=== PATIENT | male | born 1955 | race Caucasian/White ===

== ENCOUNTER 2018-09-26 04:18 | Emergency (ER) | payer OTHER ==
[2018-09-26 04:40] VITALS: BP 120/75; PULSE 59; TEMP 97.7; BMI 28.7
--- NOTE | 2018-09-26 04:43 | PDOC ---
Attending Attestation - Resident Resident Name: Giovanni Young - ED Attending Attestation I have performed the following: I have examined & evaluated the patient, The case was reviewed & discussed with the resident, I agree w/resident's findings & plan - HPI HPI: 09/26/18 04:55 Pt comes with chest pain that is pinching atypical - Physicial Exam PE: 09/26/18 07:01 Normal neuro exam. 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 Afebrile. - Medical Decision Making 09/26/18 07:02 Pt referred back to PMD to check his Thyroid panel; referred to neurologist; we discussed the fact that this is liekly stress related.
--- NOTE | 2018-09-26 05:13 | PDOC ---
History of Present Illness - General Chief Complaint: Shortness of Breath Stated Complaint: DIFFICULTY BREATHING Time Seen by Provider: 09/26/18 04:40 History Source: Patient Exam Limitations: No Limitations - History of Present Illness Initial Comments: 09/26/18 05:05 63 yo male pmh of GERD presents to the ED for inability to open his eyes after suddenly waking up around 1 am this morning along with difficulty taking deep breaths for 1 hour. Pt states a similar episode 6 months ago and did not follow up with his PCP. Pt states the episode lasted for 1 hour and completely resolved without deficits. Pt describes the epside as an inability to open his eyes even though he is awake and able to move the rest of his body which lasts for about 1 min and was followed but difficulty breathing for 1 hour. Denies RUSHING , changes in speech or vision, N/V/F/C, weakness on one side of his body. Past History - Past Medical History Allergies/Adverse Reactions: Allergies Allergy/AdvReac Type Severity Reaction Status Date / Time No Known Allergies Allergy Verified 09/26/18 04:40 - Suicide/Smoking/Psychosocial Hx Smoking History: Never smoked Have you smoked in the past 12 months: No Information on smoking cessation initiated: No Hx Alcohol Use: No Drug/Substance Use Hx: No Review of Systems - Review of Systems Constitutional: No: Chills, Fever HEENTM: No: Blurred Vision, Double Vision Respiratory: No: Cough, Shortness of Breath (resolved) Cardiac (ROS): No: Chest Pain, Edema ABD/GI: No: Constipated, Diarrhea, Nausea, Vomiting : No: Burning, Dysuria Musculoskeletal: No: Back Pain Neurological: No: Headache, Numbness, Paresthesia, Weakness, Unsteady Gait, Ataxia *Physical Exam - Vital Signs Last Vital Signs Temp Pulse Resp BP Pulse Ox 97.7 F 59 L 19 120/75 96 09/26/18 04:18 09/26/18 04:18 09/26/18 04:18 09/26/18 04:18 09/26/18 04:18 - Physical Exam General Appearance: Yes: Nourished, Appropriately Dressed. No: Apparent Distress HEENT: positive: EOMI, NEGRA, Normal ENT Inspection, Normal Voice. negative: Pale Conjunctivae, Photophobia Respiratory/Chest: positive: Lungs Clear, Normal Breath Sounds. negative: Rhonchi, Wheezing Cardiovascular: positive: Regular Rhythm, Regular Rate, S1, S2. negative: Edema , JVD, Murmur Gastrointestinal/Abdominal: positive: Flat, Soft. 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 negative: Facial Droop, Numbness, Sensory Deficit, Confused, Disoriented Moderate Sedation - Procedure Monitoring Vital Signs: Procedure Monitoring Vital Signs Temperature 97.7 F 09/26/18 04:18 Pulse Rate 59 L 09/26/18 04:18 Respiratory Rate 09/26/18 04:18 Blood Pressure 120/75 09/26/18 04:18 O2 Sat by Pulse Oximetry (%) 96 09/26/18 04:18 Medical Decision Making - Medical Decision Making 09/26/18 06:21 63 yo male no significant pmh presents to the ED for difficulty opening his eyes and taking deep breaths after suddenly waking up tonight. Pt had 1 similar episode 6 months ago. Denies any concerning neurological findings and s/s have completely resolved Vitals WNL DDX includes but not limited to: sleep paralysis, TIA, psych disorder, anxiety Pt well appearing, NAD, AOX3 All symptoms resolved and pt denies any current complaints Neuro exam grossly normal EKG shows slight prologation in the NV 210 ms but otherwise normal sinus without ST changes Chest X ray no acute path Will DC home with PCP and Neuro follow up Pt understands plan and is agreeable *DC/Admit/Observation/Transfer Diagnosis at time of Disposition: Difficulty breathing - Discharge Dispostion Disposition: HOME Condition at time of disposition: Fair Decision to Admit order: No - Referrals Referrals: Shivam Diallo MD [Primary Care Provider] - Tigre Light MD [Staff Physician] - - Patient Instructions Additional Instructions: Please make appointment and follow up with your Primary Care Doctor within the next 24-48 hours. You may contact the Neurologist referred to you if concerns persist. Return to the Emergency Room for new or concerning symptoms including but not limited to: difficulty breathing, fevers, headaches, changes in speech or vision or weakness on one side of your body. Thank you - Post Discharge Activity
--- NOTE | 2018-09-26 16:37 | EKG ---
Test Reason : Blood Pressure : / mmHG Vent. Rate : 056 BPM Atrial Rate : 056 BPM P-R Int : 210 ms QRS Dur : 082 ms QT Int : 454 ms P-R-T Axes : 051 067 055 degrees QTc Int : 438 ms SINUS BRADYCARDIA WITH 1ST DEGREE A-V BLOCK OTHERWISE NORMAL ECG NO PREVIOUS ECGS AVAILABLE Confirmed by MD TRICIA, LEELA ([id number]) on 09/26/2018 4:36:58 PM Referred By: Confirmed By:LEELA CLARKE MD
== END 2018-09-26 07:16 | disposition home or self-care (01) ==
LOC: JER 04:18
DX: R06.89 Other abnormalities of breathing (principal)
CPT/HCPCS: 71046-TC-FY; 93005; 93010; 99281-25

== ENCOUNTER 2020-06-28 10:22 | Observation (INO) | payer BC, OTHER ==
--- OUTSIDE RECORDS SUMMARY | 2020-06-28 11:25 | XMS ---
:1955 Author Organization [facility] Support Name Relationship Address Phone SE Unavailable Unavailable Unavailable DEANNA DAUGHTER [address] [place] [address] GUY Unavailable [address] [place] [address] Re-disclosure Warning The records that you are about to access may contain information from federally- assisted alcohol or drug abuse programs. If such information is present, then the following federally mandated warning applies: This information has been disclosed to you from records protected by federal confidentiality rules (42 CFR part 2). The federal rules prohibit you from making any further disclosure of this information unless further disclosure is expressly permitted by the written consent of the person to whom it pertains or as otherwise permitted by 42 CFR part 2. A general authorization for the release of medical or other information is NOT sufficient for this purpose. The Federal rules restrict any use of the information to criminally investigate or prosecute any alcohol or drug abuse patient.The records that you are about to access may contain highly sensitive health information, the redisclosure of which is protected by Article 27-F of the [facility] Public Health law. If you continue you may haveaccess to information: Regarding HIV / AIDS; Provided by facilities licensed or operated by the [facility] Office of Mental Health; or Provided by the [facility] Office for People With Developmental Disabilities. If such information is present, then the following [facility] mandated warning applies: This information has been disclosed to you from confidential records which are protected by state law. State law prohibits you from making any further disclosure of this information without the specific written consent of the person to whom it pertains, or as otherwise permitted by law. Any unauthorized further disclosure in violation of state law may result in a fine or skilled nursing sentence or both. A general authorization for the release of medical or other information is NOT sufficient authorization for further disclosure. Encounters Encounter Providers Location Date Indications Data Source(s ) (CPE) Annual/CPE [facility] 07/22/2019 eCW3 ([facility] A28 12:00:00 AM [facility] ED - Care) 07/22/2019 12:00:00 AM EDT Immunizations Vaccine Date Status Description Data Source(s) pneumococcal 05/14/2020 completed eCW3 ([facility] diana polysaccharide PPV23 12:02:00 PM EDT [facility]) New in 2011. IIV4 07/22/2019 completed eCW3 ([facility] 10:36:00 AM [facility]) Insurance Providers Payer name Policy type Policy ID Covered Covered constitution party's Policy P gely / Coverage constitution party ID relationship to White Inf ormation type white BLUE CROSS [id number] SP [id number] SENIOR PLAN [place] [id number] SP [id number] 200 HEALTH NON CAP UN [id number] SP [id number] MEDICAID COMM PLAN Problems, Conditions, and Diagnoses Code Display Name Description Problem Type Effective Dates Data Source(s) M54.41 Acute Acute left-sided Problem 07/22/2019 eCW3 ([facility] left-sided low low back pain with 12:00:00 AM E [facility] back pain with right-sided Care) right-sided sciatica sciatica Social History Code Duration Value Status Description Data Source(s ) Smoking 05/14/2020 12:00:00 Never Smoker completed Never Smoker e CW3 ([facility]) Smoking 09/12/2019 12:00:00 Never Smoker completed Never Smoker e CW3 ([facility]) Vital Signs ID Date Data Source UNK Name Value Range Interpretation Code Description Data Source(s) Diastolic blood 74 mm[Hg] 74 mm[Hg] eCW3 ([facility]) Systolic blood 119 mm[Hg] 119 mm[Hg] eCW3 ([facility]) Body temperature 97.3 [degF] 97.3 [degF] eCW3 ( [facility]) Body mass index 31.24 kg/m2 31.24 kg/m2 eCW3 ([facility] (BMI) [Ratio] [facility]) Body weight 182 [lb_av] 182 [lb_av] eCW3 ([facility]) Body height 64 [in_i] 64 [in_i] eCW3 ([facility])
--- NOTE | 2020-06-28 11:26 | PDOC ---
History of Present Illness - General Chief Complaint: Chest Pain Stated Complaint: CHEST DISCOMFORT Time Seen by Provider: 06/28/20 11:21 History Source: Patient Exam Limitations: No Limitations - History of Present Illness Initial Comments: 06/28/20 11:34 65YOM with h/o HLD (untreated currently), coronary cath 10 years ago in [place] (states vessels were clean), and brother+mother with h/o CAD, who p/w pinching episodes of nonradiating substernal chest pain x 1-2 weeks, now worse and fluctuating throughout the day, occurring at random times during both rest and exercise. No associated back pain, SOB, RUSHING, neck pain, abdominal pain, f/c/n/v/d/c, or other symptoms. Did not take any ASA or other meds for this pain. 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 States he just switched PCPs at [facility] on [address] in [place], but cannot remember the name of the new PCP. Past History - Medical History Allergies/Adverse Reactions: Allergies Allergy/AdvReac Type Severity Reaction Status Date / Time No Known Allergies Allergy Verified 06/28/20 10:27 Home Medications: Ambulatory Orders NK [No Known Home Medication] 06/28/20 COPD: No - Psycho-Social/Smoking History Smoking History: Never smoked Have you smoked in the past 12 months: No - Substance Abuse Hx (Audit-C & DAST Scrn) How often the patient has a drink containing alcohol: Never Score: In Men: 4 or > Positive; In Women: 3 or > Positive: 0 Screen Result (Pos requires Nsg. Audit-10AR): Negative In the last yr the pt used illegal drug/Rx for NonMed reason: No Score: Yes response is considered Positive: 0 Screen Result (Positive result requires Nsg. DAST-10): Negative Review of Systems - Review of Systems Able to Perform ROS?: Yes Comments:: 06/28/20 11:38 GEN: no fever, chills, malaise, or generalized weakness HEENT: no ear pain, congestion, sore throat, vision change, or eye pain CV: +chest pain, no palpitations, lightheadedness, syncope, or edema RESP: no SOB, wheezing, or cough GI: no abdominal pain, nausea, vomiting, diarrhea, constipation, or rectal bleed : no dysuria, hematuria, or discharge MSK: no muscle weakness or pain, no joint swelling or pain NEURO: no headache, vertigo, numbness, tingling, or focal weakness PSYCH: no SI, HI, or behavior change SKIN: no jaundice, rash, lesions, or unexplained bruises ROS otherwise negative except as noted in HPI *Physical Exam - Vital Signs Last Vital Signs Temp Pulse Resp BP Pulse Ox 97.7 F 54 L 16 135/84 97 06/28/20 10:27 06/28/20 10:27 06/28/20 10:27 06/28/20 10:27 06/28/20 10:27 - Physical Exam 06/28/20 11:38 GENERAL: very pleasant and well-appearing, A/Ox4, no distress, answers questions appropriately, Citizen Of [place]-speaking only, daughter at bedside HEENT: PERRLA, EOMI, moist mucous membranes NECK/BACK: no midline ttp, no spinal step-off or deformity, no hematoma, full ROM, neck supple CARDIOVASCULAR: regular rate/rhythm, no MGR, strong peripheral pulses, capillary refill <2 seconds, extremities wwp, no edema, radial pulses are equal LUNGS/RESPIRATORY: no respiratory distress, CTAB GI/ABDOMEN: symmetric [id number], normoactive BS, soft, no ttp, no midline pulsatile masses : no CVA tenderness MSK/EXTREMITIES: no muscle atrophy, no acute deformity SKIN: warm and dry, no pallor, no jaundice, no rash, no pathologic-appearing bruising, no skin breakdown, no cuts, no lesions NEUROLOGICAL: GCS 15, CN II-XII grossly intact, 5/5 strength proximally and distally, no facial droop Heart Score/ECG Review - History History: Moderately suspicious - Electrocardiogram EKG: Non specific repolarization disturbance - Age Age: 45-65 - Risk Factors Risk Factors Heart Score: Yes Hx Hypercholesterolemia, Yes Positive family hx of cardiac disease Based on the list above the patient has:: 1-2 risk factors - Troponin Troponin: </= normal limit - Score Heart Score - Total: 4 #1 06/28/20 11:24 Sinus bradycardia, rate 55, normal axis and intervals, anteroseptal TWI which are new compared with 2019, no ST elevations. ED Treatment Course - LABORATORY CBC & Chemistry Diagram: 06/28/20 11:10 06/28/20 11:10 - ADDITIONAL ORDERS Additional order review: Laboratory Results 06/28/20 06/28/20 11:10 11:10 PT with INR 12.20 INR 1.03 Sodium 141 Potassium 4.2 Chloride 107 Carbon Dioxide 29 Anion Gap 5 L BUN 14.8 Creatinine 0.9 Est GFR (CKD-EPI)AfAm 103.51 Est GFR (CKD-EPI)NonAf 89.31 Random Glucose 88 Calcium 8.4 L Magnesium 2.4 Total Bilirubin 0.7 AST 23 ALT 40 Alkaline Phosphatase 59 Creatine Kinase 146 Troponin I < 0.02 Total Protein 7.0 Albumin 3.4 Lipase 83 06/28/20 11:10 RBC 4.87 MCV 85.0 MCHC 33.5 RDW 13.7 MPV 9.0 Neutrophils % 70.9 Lymphocytes % 18.9 Monocytes % 7.5 Eosinophils % 1.4 Basophils % 1.3 - RADIOLOGY Radiology Studies Ordered: Category Date Time Status CHEST X-RAY PORTABLE* [RAD] Stat Radiology 06/28/20 11:22 Completed - Medications Given in the ED: ED Medications Discontinued Medications Generic Name Dose Route Start Last Admin Trade Name Freq PRN Reason Stop Dose Admin Aspirin 324 mg 06/28/20 11:33 06/28/20 11:47 Asa - PO 06/28/20 11:34 324 mg ONCE ONE Administration Medical Decision Making - Medical Decision Making 06/28/20 11:34 65YOM with FHX, also with personal h/o HLD (currently untreated), and prior coronary cath 10 years ago, states was clean, p/w chest pain. Initial Vital Signs Temp Pulse Resp BP Pulse Ox 97.7 F 54 L 16 135/84 97 06/28/20 10:27 06/28/20 10:27 06/28/20 10:27 06/28/20 10:27 06/28/20 10:27 There is concern for ACS in this patient including angina or recent NC. Other possibilities less likely including GERD/PUD, ericarditis, tamponade, aortic dissection, AAA, PTX, PE, esophageal tear, esophagitis (e.g. pill, infectious), esophageal stricture, esophageal FB, gastritis, PUD, pancreatitis, cholecystitis, cholangitis, colitis, bowel perforation, PNA/bronchitis, pleurisy, pleuritis, MVP, pulmonary HTN, musculoskeletal, panic/anxiety, etc. Patient has new EKG changes and HEART score 4. To be admitted for further observation, workup, echo, cardiology consult, etc. 06/28/20 12:22 Provider Orders Category Date Time Status Decision to Admit to Hospital Routine Admission 06/28/20 11:43 Active ELECTROCARDIOGRAM [CARD] Stat Cardiology 06/28/20 10:54 Ordered EKG needed NOW Care 06/28/20 10:54 Completed CARDIAC PROFILE ([facility]) Stat Lab 06/28/20 11:10 Completed CBC WITH DIFFERENTIAL Stat Lab 06/28/20 11:10 Completed COMP METABOLIC PANEL Stat Lab 06/28/20 11:10 Completed LIPASE Stat Lab 06/28/20 11:10 Completed MAGNESIUM Stat Lab 06/28/20 11:10 Completed PT/INR (PROTHROMBIN TIME) Stat Lab 06/28/20 11:10 Completed Aspirin [ASA -] Medication 06/28/20 11:42 Discontinued 324 mg .ROUTE .STK-MED ONE Aspirin [ASA -] Medication 06/28/20 11:33 Discontinued 324 mg PO ONCE ONE IV Insert NOW Phy Order 06/28/20 11:22 Active Saline Lock, Insert ONCE Phy Order 06/28/20 11:30 Ordered CHEST X-RAY PORTABLE* [RAD] Stat Radiology 06/28/20 11:22 Completed Medications Discontinued Medications Generic Name Dose Route Start Last Admin Trade Name Rejiq PRN Reason Stop Dose Admin Aspirin 324 mg 06/28/20 11:33 06/28/20 11:47 Asa - PO 06/28/20 11:34 324 mg ONCE ONE Administration Aspirin Confirm 06/28/20 11:42 Asa - Administered 06/28/20 11:43 Dose 324 mg .ROUTE .STK-MED ONE Lab Results WBC 5.2 K/mm3 (4.0-10.0) 06/28/20 11:10 RBC 4.87 M/mm3 (4.00-5.60) 06/28/20 11:10 Hgb 13.9 GM/dL (11.7-16.9) 06/28/20 11:10 Hct 41.4 % (35.4-49) 06/28/20 11:10 MCV 85.0 fl (80-96) 06/28/20 11:10 MCH 28.5 pg (25.7-33.7) 06/28/20 11:10 MCHC 33.5 g/dl (32.0-35.9) 06/28/20 11:10 RDW 13.7 % (11.9-15.9) 06/28/20 11:10 Plt Count 211 K/MM3 (134-434) 06/28/20 11:10 MPV 9.0 fl (7.5-11.1) 06/28/20 11:10 Absolute Neuts (auto) 3.7 K/mm3 (1.5-8.0) 06/28/20 11:10 Neutrophils % 70.9 % (42.8-82.8) 06/28/20 11:10 Lymphocytes % 18.9 % (8-40) 06/28/20 11:10 Monocytes % 7.5 % (3.8-10.2) 06/28/20 11:10 Eosinophils % 1.4 % (0-4.5) 06/28/20 11:10 Basophils % 1.3 % (0-2.0) 06/28/20 11:10 Nucleated RBC % 0 % (0-0) 06/28/20 11:10 PT with INR 12.20 SEC (9.7-13.0) 06/28/20 11:10 INR 1.03 (0.83-1.09) 06/28/20 11:10 Sodium 141 mmol/L (136-145) 06/28/20 11:10 Potassium 4.2 mmol/L (3.5-5.1) 06/28/20 11:10 Chloride 107 mmol/L (98-107) 06/28/20 11:10 Carbon Dioxide 29 mmol/L (21-32) 06/28/20 11:10 Anion Gap 5 MMOL/L (8-16) L 06/28/20 11:10 BUN 14.8 mg/dL (7-18) 06/28/20 11:10 Creatinine 0.9 mg/dL (0.55-1.3) 06/28/20 11:10 Est GFR (CKD-EPI)AfAm 103.51 06/28/20 11:10 Est GFR (CKD-EPI)NonAf 89.31 06/28/20 11:10 Random Glucose 88 mg/dL (74-106) 06/28/20 11:10 Calcium 8.4 mg/dL (8.5-10.1) L 06/28/20 11:10 Magnesium 2.4 mg/dL (1.8-2.4) 06/28/20 11:10 Total Bilirubin 0.7 mg/dL (0.2-1) 06/28/20 11:10 AST 23 U/L (15-37) 06/28/20 11:10 ALT 40 U/L (13-61) 06/28/20 11:10 Alkaline Phosphatase 59 U/L (45-117) 06/28/20 11:10 Creatine Kinase 146 U/L (26-308) 06/28/20 11:10 Troponin I < 0.02 ng/ml (0.00-0.05) 06/28/20 11:10 Total Protein 7.0 g/dl (6.4-8.2) 06/28/20 11:10 Albumin 3.4 g/dl (3.4-5.0) 06/28/20 11:10 Lipase 83 U/L (73-393) 06/28/20 11:10 CXR no acute cardiopulmonary process. Scoliosis. 06/28/20 12:22 Symphony microblogged for admission. 06/28/20 13:00 I have spoken with Dr. Mckee, patient to Tele Obs, Dr. Olivarez. Last Vital Signs Temp Pulse Resp BP Pulse Ox 97.8 F 55 L 18 125/80 96 06/28/20 13:26 06/28/20 13:26 06/28/20 13:26 06/28/20 13:26 06/28/20 13:26 Discharge - Discharge Information Problems reviewed: Yes Clinical Impression/Diagnosis: T wave inversion in EKG Chest pain Qualifiers: Chest pain type: unspecified Qualified Code(s): R07.9 - Chest pain, unspecified Condition: Guarded - Admission Yes - Follow up/Referral - Patient Discharge Instructions - Post Discharge Activity
[2020-06-28] MEDS ORDERED: ASPIRIN 81 MG CHEWABLE TABLETS PO ONE (11:33)
[2020-06-28] MEDS ORDERED: ASPIRIN 81 MG CHEWABLE TABLETS ONE (11:42)
[2020-06-28 11:48] LABS: BASO % 1.3 % (0-2.0); EOS % 1.4 % (0-4.5); HEMATOCRIT 41.4 % (35.4-49); HEMOGLOBIN 13.9 GM/dL (11.7-16.9); LYMPH % 18.9 % (8-40); MCH 28.5 pg (25.7-33.7); MCHC 33.5 g/dl (32.0-35.9); MONO % 7.5 % (3.8-10.2); NEUT % 70.9 % (42.8-82.8); PLATELET COUNT 211 K/MM3 (134-434); RBC 4.87 M/mm3 (4.00-5.60); RDW 13.7 % (11.9-15.9); WHITE BLOOD COUNT 5.2 K/mm3 (4.0-10.0)
[2020-06-28 11:54] LABS: INR 1.03 (0.83-1.09); PROTHROMBIN TIME (PATIENT) 12.2 SEC (9.7-13.0)
[2020-06-28 12:20] LABS: ALBUMIN 3.4 g/dl (3.4-5.0); ALK PHOS 59 U/L (45-117); ANION GAP 5 MMOL/L (8-16); BILIRUBIN,TOTAL 0.7 mg/dL (0.2-1); BLOOD UREA NITROGEN 14.8 mg/dL (7-18); CALCIUM 8.4 mg/dL (8.5-10.1); CHLORIDE 107 mmol/L (98-107); CO2 29 mmol/L (21-32); CREATININE 0.9 mg/dL (0.55-1.3); GLUCOSE,RANDOM 88 mg/dL (74-106); LIPASE 83 U/L (73-393); MAGNESIUM 2.4 mg/dL (1.8-2.4); POTASSIUM 4.2 mmol/L (3.5-5.1); SGOT/AST 23 U/L (15-37); SGPT/ALT 40 U/L (13-61); SODIUM 141 mmol/L (136-145)
--- NOTE | 2020-06-28 12:59 | HP ---
CHIEF COMPLAINT: chest pain PCP: HISTORY OF PRESENT ILLNESS: History obtained with assistance of daughter (Kellen [phone]) Patient is a 65 year old male with questionable history of coronary artery disease (reports cardiac catheterization performed approx 10 years ago in [place], does not endorse stents), hyperlipidemia presents with complaint of chest pain. Endorses chest pain has been intermittent sharp/ pinching substernal and non radiating that lasts few seconds before spontaneous resolution. The pain is not associated with exertion, and he notices is most with rest or while driving. Last evening as patient was trying to fall asleep patient felt this pain, however lasted approx two hours. He attempted to ameloriate the symptoms with cup of tea, and eventually fell asleep. He felt the pain again this morning, prompting presentation to the ED. He endorses an episode of chest pain approx 10 years ago, where he describes a cardiac catheterization though he is not aware of any stents placed at that time. 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 He endorses running for exercise, without any chest pain. Denies any trauma to the chest or any part of body. Denies subjective fevers, chills, shortness of breath, chest pain, palpitations, abdominal pain, nausea, vomitng, hemoptysis, diarrhea, constipation, melena, hematochezia. ER course was notable for: (1) EKG, Troponin 0.02 (2) (3) Recent Travel: denies PAST MEDICAL HISTORY: ?coronary artery disease, hyperlipidemia PAST SURGICAL HISTORY: cardiac catheterization 10 years ago FAMILY HISTORY: Endorses cardiac history of coronary artery disease in mother, and brother Social History: Lives with and two children. 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 He is independent in activities of daily living. Smoking: Former smoker, quit over 40 years ago Alcohol: Denies alcohol consumption Drugs: Denies illicit drug use Allergies No Known Allergies Allergy (Verified 06/28/20 10:27) HOME MEDICATIONS: Home Medications Medication Instructions Recorded NK [No Known Home Medication] 06/28/20 REVIEW OF SYSTEMS CONSTITUTIONAL: Absent: fever, chills, diaphoresis, generalized weakness, malaise, loss of appetite, weight change HEENT: Absent: rhinorrhea, nasal congestion, throat pain, throat swelling, difficulty swallowing, mouth swelling, ear pain, eye pain, visual changes CARDIOVASCULAR: Admits: chest pain. Absent: syncope, palpitations, irregular heart rate, lightheadedness, peripheral edema RESPIRATORY: Absent: cough, shortness of breath, dyspnea with exertion, orthopnea, wheezing, stridor, hemoptysis GASTROINTESTINAL: Absent: abdominal pain, abdominal distension, nausea, vomiting, diarrhea, constipation, melena, hematochezia GENITOURINARY: Absent: dysuria, frequency, urgency, hesitancy, hematuria, flank pain, genital pain MUSCULOSKELETAL: Absent: myalgia, arthralgia, joint swelling, back pain, neck pain SKIN: Absent: rash, itching, pallor HEMATOLOGIC/IMMUNOLOGIC: Absent: easy bleeding, easy bruising, lymphadenopathy, frequent infections ENDOCRINE: Absent: unexplained weight gain, unexplained weight loss, heat intolerance, cold intolerance NEUROLOGIC: Absent: headache, focal weakness or paresthesias, dizziness, unsteady gait, seizure, mental status changes, bladder or bowel incontinence PSYCHIATRIC: Absent: anxiety, depression, suicidal or homicidal ideation, hallucinations. PHYSICAL EXAMINATION Vital Signs - 24 hr 06/28/20 10:27 Temperature 97.7 F Pulse Rate 54 L Respiratory 16 Rate Blood Pressure 135/84 O2 Sat by Pulse 97 Oximetry (%) GENERAL: The patient is awake, alert, and fully oriented, in no acute distress. HEAD: Normocephalic, atraumatic. EYES: PERRL, extraocular movements intact, sclera anicteric, conjunctiva clear. ENT: Oropharynx clear, without erythema or exudates. Moist mucous membranes. NECK: Trachea midline, full range of motion. Supple without lymphadenopathy. LUNGS: Breath sounds equal, clear to auscultation bilaterally. No wheezes, no crackles. No accessory muscle use. HEART: Regular rate and rhythm. S1, S2 without murmur, rub or gallop. ABDOMEN: Soft, nondistended, nontender to light and deep palpation x4 quadrants. No rebound tenderness, no guarding. Normoactive bowel sounds x4 quadrants. No hepatosplenomegaly, no masses appreciated. EXTREMITIES: 2+ radial, dorsalis pedis pulses bilaterally. Warm, well-perfused. No lower extremity edema bilaterally. NEUROLOGICAL: Cranial nerves II through XII grossly intact. Normal speech. No gross focal deficits. PSYCH: Normal mood, normal affect upon my encounter. SKIN: Warm, dry. Laboratory Results - last 24 hr 06/28/20 06/28/20 06/28/20 11:10 11:10 11:10 WBC 5.2 RBC 4.87 Hgb 13.9 Hct 41.4 MCV 85.0 MCH 28.5 MCHC 33.5 RDW 13.7 Plt Count 211 MPV 9.0 Absolute Neuts (auto) 3.7 Neutrophils % 70.9 Lymphocytes % 18.9 Monocytes % 7.5 Eosinophils % 1.4 Basophils % 1.3 Nucleated RBC % 0 PT with INR 12.20 INR 1.03 Sodium 141 Potassium 4.2 Chloride 107 Carbon Dioxide 29 Anion Gap 5 L BUN 14.8 Creatinine 0.9 Est GFR (CKD-EPI)AfAm 103.51 Est GFR (CKD-EPI)NonAf 89.31 Random Glucose 88 Calcium 8.4 L Magnesium 2.4 Total Bilirubin 0.7 AST 23 ALT 40 Alkaline Phosphatase 59 Creatine Kinase 146 Troponin I < 0.02 Total Protein 7.0 Albumin 3.4 Lipase 83 ASSESSMENT/PLAN: Patient is a 65 year old male with questionable history of coronary artery disea se, hyperlipidemia presents with complaint of chest pain. Chest pain -Uncertain etiology. Unclear history regarding distant cardiac catheterization. Pain described as non exertional. -Initial troponin 0.02, however T wave inversions noted in V2, V3 -Obtain repeat troponin -Serial EKG -Telemetry monitoring -Cardiac transthoracic ECHO -Cardiology consult (Dr. Weathers) -Received aspirin 325mg in ED. Continue Aspirin 81mg PO daily -Atorvastatin 40mg PO HS History of hyperlipidemia -Currently denies taking Statin -Obtain fasting lipid panel FEN -IV normal saline at 75mL/ hour -Follow BMP -NPO after midnight Prophylaxis -Early ambulation Disposition -Observation on Telemetry Floor Family Medical History Family History: As Documented Visit type - Medication Review Med list reviewed for High Risk Meds patients 65 and older: Yes - Emergency Visit Emergency Visit: Yes ED Registration Date: 06/28/20 Care time: The patient presented to the Emergency Department on the above date and was hospitalized for further evaluation of their emergent condition. - New Patient This patient is new to me today: Yes Date on this admission: 06/28/20 - Critical Care Critical Care patient: No ATTENDING PHYSICIAN STATEMENT I saw and evaluated the patient. I reviewed the resident's note and discussed the case with the resident. I agree with the resident's findings and plan as documented. SUBJECTIVE: OBJECTIVE: ASSESSMENT AND PLAN:
--- NOTE | 2020-06-28 13:21 | EKG ---
Test Reason : Blood Pressure : / mmHG Vent. Rate : 053 BPM Atrial Rate : 053 BPM P-R Int : 206 ms QRS Dur : 078 ms QT Int : 454 ms P-R-T Axes : 029 029 049 degrees QTc Int : 426 ms SINUS BRADYCARDIA WITH SINUS ARRHYTHMIA T WAVE ABNORMALITY, CONSIDER ANTERIOR ISCHEMIA ABNORMAL ECG WHEN COMPARED WITH ECG OF 26-SEP-2018 06:06, T WAVE INVERSION NOW EVIDENT IN ANTERIOR LEADS Confirmed by MANUEL NORTH, RPADIP ([id number]) on 06/28/2020 1:20:57 PM Referred By: Confirmed By:PRADIP JACKSON MD
[2020-06-28] MEDS: SODIUM CHLORIDE 1,000 ML IV SCH (13:40)
--- OUTSIDE RECORDS SUMMARY | 2020-06-28 15:00 | XMS ---
:1955 Author Organization [facility] Support Name Relationship Address Phone SE, SELF-EMPLOYED Unavailable Unavailable Unavailable SE Unavailable Unavailable Unavailable CHRIS HUERTA DAUGHTER [address] [address] LEANNA GUY Unavailable [address] [place] [address] Re-disclosure Warning The records that you are [...] is protected by Article 27-F of the [facility] Public Health law. If you continue you may haveaccess to information: Regarding HIV / AIDS; Provided by facilities licensed or operated by the [facility] Office of Mental Health; or Provided by the [facility] Office for People With Developmental Disabilities. If such information is present, then the following [facility] mandated warning applies: This information has been [...] law may result in a fine or mcc sentence or both. A general authorization for the release of medical or other information is NOT sufficient authorization for further disclosure. Encounters Encounter Providers Location Date Indications Data Source(s ) (CPE) Annual/CPE [place] Primary 07/22/2019 eCW3 ([facility] A28 12:00:00 AM [facility] EDT - Care) 07/22/2019 12:00:00 AM EDT Immunizations Vaccine Date Status Description Data Source(s) pneumococcal 05/14/2020 completed eCW3 ([facility] diana polysaccharide PPV23 12:02:00 PM EDT [facility]) New in 2011. IIV4 07/22/2019 completed eCW3 ([facility] 10:36:00 AM [facility]) Insurance Providers Payer name Policy type Policy ID Covered Covered constitution party's Policy P gely / Coverage constitution party ID relationship to White Inf ormation type white BLUE CROSS [id number] SP [id number] SENIOR PLAN [place] [id number] SP [id number] 200 HEALTH NON CAP UN [id number] SP [id number] MEDICAID COMM PLAN Problems, Conditions, and Diagnoses Code Display Name Description Problem Type Effective Dates Data Source(s) M54.41 Acute Acute left-sided Problem 07/22/2019 eCW3 ([facility] left-sided low low back pain with 12:00:00 AM E [facility] back pain with right-sided Care) right-sided sciatica sciatica Social History Code Duration Value Status Description Data Source(s ) Smoking 05/14/2020 12:00:00 Never Smoker completed Never Smoker e CW3 ([facility] 1928[facility]) Smoking 09/12/2019 12:00:00 Never Smoker completed Never Smoker e CW3 ([facility]) Vital Signs ID Date Data Source UNK Name Value Range Interpretation Code Description Data Source(s) Diastolic blood 74 mm[Hg] 74 mm[Hg] eCW3 ([facility]) Systolic blood 119 mm[Hg] 119 mm[Hg] eCW3 ([facility]) Body temperature 97.3 [degF] 97.3 [degF] eCW3 ( [facility]) Body mass index 31.24 kg/m2 31.24 kg/m2 eCW3 ([facility] (BMI) [Ratio] [facility]) Body weight 182 [lb_av] 182 [lb_av] eCW3 ([facility]) Body height 64 [in_i] 64 [in_i] eCW3 ([facility])
[2020-06-28] MEDS ORDERED: ATORVASTATIN CA 40 MG TABLET (FP) PO SCH (22:00)
[2020-06-29 01:00] VITALS: BMI 29.0
[2020-06-29] MEDS: SODIUM CHLORIDE 1,000 ML IV SCH (02:30)
--- NOTE | 2020-06-29 05:20 | CON.CARD ---
Consult Consult Specialty:: Cardiology Referred by:: Dr Childs Reason for Consultation:: Chest pain - History of Present Illness Chief Complaint: chest pinching/discomfort History of Present Illness: 65YOM with h/o HLD (untreated currently), coronary cath 10 years ago in [place] (states vessels were clean), and brother+mother with h/o CAD, who p/w pinching episodes of nonradiating substernal chest pain x 1-2 weeks, now worse and fluctuating throughout the day, occurring at random times during both rest and exercise. No associated back pain, SOB, RUSHING, neck pain, abdominal pain, f/c/n/v/d/c, or other symptoms. specifically describes central chest discomfort that occurs at rest at times, lasts few seconds and is not worsened with exertion. There are no other assd anginal sx: no diaphoresis/nausea/vomiting/jaw pain. 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: No: Alzheimer's, CVA, Dementia, Migraine, Multiple Sclerosis, Peripheral Neuropathy, Parkinson's, Seizure, Syncope, TIA, Vertigo, Other Cardio/Vascular: Yes: Other (describes cath many years ago- normal or non obstx- told issue was gastritis) Pulmonary: No: Asthma, Bronchitis, Cancer, COPD, O2 Dependent, Pneumonia, Previously Intubated, Pulmonary Embolus, Pulmonary Fibrosis, Sleep Apnea, Other Gastrointestinal: No: Ascites, Cancer, Constipation, Crohn's Disease, Diverticulitis, Diverticulosis, Esophageal Varices, Gastritis, GERD, GI Bleed, Hemorrhoids, Hiatal Hernia, Inflamatory Bowel Disease, Irritable Bowel Disease, Pancreatitis, Peptic Ulcer Disease, Ulcerative Colitis, Other Hepatobiliary: No: Cirrhosis, Cholelithiasis, Cholecystitis, Choledocholithiasis, Hepatitis A, Hepatitis B, Hepatitis C, Other Renal/: No: Renal Failure, Renal Inusuff, BPH, Cancer, Hematuria, Hemodialysis, Neurogenic Bladder, Renal Calculi, UTI, Other Infectious Disease: No: AIDS, C-Diff, Herpes Zoster, HIV, MRSA, STD's, Tuberculosis, VREF, Other Psych: No: Addictions, Anxiety, Bipolar, Depression, Panic, Psychosis, Schizophrenia, Other Musculoskeletal: No: Bursitis, Chronic low back pain, Hemiparesis, Hemiplegia, Osteoarthritis, Paraplegia, Other Rheumatology: No: Fibromyalgia, Gout, Lupus, Rheumatoid Arthritis, Sarcoidosis, Vasculitis, Other ENT: No: Allergic Rhinitis, Sinusitis, Other Endocrine: No: Paisley's Disease, [place]'s Disease, Diabetes Insipidus, Diabetes Mellitus, Hyperparathyroidism, Hyperthyroidism, Hypothyroidism, Osteopenia, SIADH, Other - Alcohol/Substance Use Hx Alcohol Use: No History of Substance Use: reports: None - Smoking History Smoking history: Never smoked Have you smoked in the past 12 months: No - Social History Occupation: [employer] History of Recent Travel: No Home Medications - Allergies Allergies/Adverse Reactions: Allergies Allergy/AdvReac Type Severity Reaction Status Date / Time No Known Allergies Allergy Verified 06/28/20 10:27 - Home Medications Home Medications: Ambulatory Orders NK [No Known Home Medication] 06/28/20 Family Medical History Family History: Unremarkable Review of Systems Findings/Remarks: see HPI - Review of Systems Constitutional: reports: No Symptoms Eyes: reports: No Symptoms HENT: reports: No Symptoms Neck: reports: No Symptoms Cardiovascular: reports: Chest Pain Respiratory: reports: No Symptoms Gastrointestinal: reports: No Symptoms Genitourinary: reports: No Symptoms Breasts: reports: No Symptoms Reported Musculoskeletal: reports: No Symptoms Integumentary: reports: No Symptoms Neurological: reports: No Symptoms Endocrine: reports: No Symptoms Hematology/Lymphatic: reports: No Symptoms Psychiatric: reports: No Symptoms - Risk Factors Known Risk Factors: Yes: Age Vital Signs: Vital Signs Temperature 97.6 F 06/29/20 01:57 Pulse Rate 81 06/29/20 01:57 Respiratory Rate 20 06/29/20 01:57 Blood Pressure 113/63 06/29/20 01:57 O2 Sat by Pulse Oximetry (%) 95 06/28/20 19:53 Constitutional: Yes: No Distress, Calm Eyes: Yes: Conjunctiva Clear, EOM Intact HENT: Yes: Atraumatic, Normocephalic Neck: Yes: Supple, Trachea Midline Respiratory: Yes: Regular, CTA Bilaterally Gastrointestinal: Yes: Soft (nt) Cardiovascular: Yes: Regular Rate and Rhythm JVD: No Carotid Bruit: No PMI: Non-Displaced Heart Sounds: Yes: S1, S2 (RRR, no M/R/G) Edema: No Peripheral Pulses WNL: Yes Neurological: Yes: Alert, Oriented ...Motor Strength: WNL Psychiatric: Yes: WNL - Other Data Labs, Other Data: CBC, BMP 06/28/20 11:10 06/28/20 11:10 INR, PTT INR 1.03 (0.83-1.09) 06/28/20 11:10 Troponin, BNP 06/28/20 06/28/20 06/28/20 11:10 15:00 19:51 Troponin I < 0.02 < 0.02 < 0.02 Troponin, BNP 06/28/20 06/28/20 06/28/20 11:10 15:00 19:51 Troponin I < 0.02 < 0.02 < 0.02 Echo: Pending Prior Cardiac Procedures: Cardiac Catheterization (by report> 10 years ago- no stent required) Imaging - Results Chest X-ray: Report Reviewed EKG: Image Reviewed Assessment/Plan IMP: Atypical CP with negative cardiac enzymes x 3. No sig risk factors beyond age, symptoms do not seem consistent with anginal pain. Abnl ECG, nonspecific REC: Planned for echo and nuclear stress today for further evaluation and risk stratification. Further recommendations pending results. If WNL, ok for discharge with outpatient cardiac f/u in 1 week in our office: [phone].
[2020-06-29 07:07] LABS: HEMATOCRIT 41.2 % (35.4-49); HEMOGLOBIN 14.2 GM/dL (11.7-16.9); MCH 29.2 pg (25.7-33.7); MCHC 34.4 g/dl (32.0-35.9); MEAN CELL VOLUME 84.8 fl (80-96); PLATELET COUNT 191 K/MM3 (134-434); RBC 4.86 M/mm3 (4.00-5.60); RDW 13.5 % (11.9-15.9); WHITE BLOOD COUNT 6.3 K/mm3 (4.0-10.0)
[2020-06-29 07:37] LABS: BLOOD UREA NITROGEN 14.7 mg/dL (7-18); CALCIUM 8.7 mg/dL (8.5-10.1); MAGNESIUM 2.3 mg/dL (1.8-2.4); POTASSIUM 4.1 mmol/L (3.5-5.1)
[2020-06-29 07:49] LABS: PHOSPHOROUS 3.7 mg/dL (2.5-4.9)
--- NOTE | 2020-06-29 09:10 | PN ---
Teaching Attending Note Name of Resident: Amadeo Mckee ATTENDING PHYSICIAN STATEMENT I saw and evaluated the patient. I reviewed the resident's note and discussed the case with the resident. I agree with the resident's findings and plan as documented. SUBJECTIVE: Patient seen and examined at bedside, endorses intermittent CP lasting seconds for the past 1-2 weeks. VSS. OBJECTIVE: GA comfortable, AAox3 HEENT nC/AT, EOMI, no JVD Chest CTAB, no crackles or wheezing CVS S1, S2+, RRR Abd SOft, NT, ND, BS+ Ext no LE edema, no calf tenderness Vital Signs (72 hours) 06/28/20 06/28/20 06/28/20 10:27 12:44 13:26 Temperature 97.7 F 98 F 97.8 F Pulse Rate 54 L 59 L Pulse Rate [ 55 L Apical] Respiratory 16 20 18 Rate Blood Pressure 135/84 135/81 Blood Pressure 125/80 [Right Arm] O2 Sat by Pulse 97 95 96 Oximetry (%) 06/28/20 06/28/20 06/28/20 17:49 19:53 19:54 Temperature 97.8 F 98 F Pulse Rate Pulse Rate [ 56 L 58 L Apical] Respiratory 18 17 Rate Blood Pressure Blood Pressure 123/78 114/81 [Right Arm] O2 Sat by Pulse 96 95 Oximetry (%) 06/28/20 06/29/20 06/29/20 22:00 01:57 05:00 Temperature 97.6 F Pulse Rate 81 57 L Pulse Rate [ Apical] Respiratory 20 20 20 Rate Blood Pressure 113/63 113/70 Blood Pressure [Right Arm] O2 Sat by Pulse 95 Oximetry (%) Laboratory Results - last 24 hr 06/28/20 06/28/20 06/28/20 11:10 11:10 11:10 WBC 5.2 RBC 4.87 Hgb 13.9 Hct 41.4 MCV 85.0 MCH 28.5 MCHC 33.5 RDW 13.7 Plt Count 211 MPV 9.0 Absolute Neuts (auto) 3.7 Neutrophils % 70.9 Lymphocytes % 18.9 Monocytes % 7.5 Eosinophils % 1.4 Basophils % 1.3 Nucleated RBC % 0 PT with INR 12.20 INR 1.03 Sodium 141 Potassium 4.2 Chloride 107 Carbon Dioxide 29 Anion Gap 5 L BUN 14.8 Creatinine 0.9 Est GFR (CKD-EPI)AfAm 103.51 Est GFR (CKD-EPI)NonAf 89.31 Random Glucose 88 Calcium 8.4 L Phosphorus Magnesium 2.4 Total Bilirubin 0.7 AST 23 ALT 40 Alkaline Phosphatase 59 Creatine Kinase 146 Troponin I < 0.02 Total Protein 7.0 Albumin 3.4 Triglycerides Cholesterol Total LDL Cholesterol HDL Cholesterol Lipase 83 TSH Thyroxine (T4) 06/28/20 06/28/20 06/29/20 15:00 19:51 05:35 WBC 6.3 RBC 4.86 Hgb 14.2 Hct 41.2 MCV 84.8 MCH 29.2 MCHC 34.4 RDW 13.5 Plt Count 191 MPV 9.0 Absolute Neuts (auto) Neutrophils % Lymphocytes % Monocytes % Eosinophils % Basophils % Nucleated RBC % PT with INR INR Sodium Potassium Chloride Carbon Dioxide Anion Gap BUN Creatinine Est GFR (CKD-EPI)AfAm Est GFR (CKD-EPI)NonAf Random Glucose Calcium Phosphorus Magnesium Total Bilirubin AST ALT Alkaline Phosphatase Creatine Kinase 122 Troponin I < 0.02 < 0.02 Total Protein Albumin Triglycerides Cholesterol Total LDL Cholesterol HDL Cholesterol Lipase TSH Thyroxine (T4) 06/29/20 05:35 WBC RBC Hgb Hct MCV MCH MCHC RDW Plt Count MPV Absolute Neuts (auto) Neutrophils % Lymphocytes % Monocytes % Eosinophils % Basophils % Nucleated RBC % PT with INR INR Sodium 138 Potassium 4.1 Chloride 105 Carbon Dioxide 29 Anion Gap 5 L BUN 14.7 Creatinine 1.0 Est GFR (CKD-EPI)AfAm 91.13 Est GFR (CKD-EPI)NonAf 78.63 Random Glucose 89 Calcium 8.7 Phosphorus 3.7 Magnesium 2.3 Total Bilirubin AST ALT Alkaline Phosphatase Creatine Kinase Troponin I Total Protein Albumin Triglycerides 144 Cholesterol 203 H Total LDL Cholesterol 140 H HDL Cholesterol 45 Lipase TSH 1.59 Thyroxine (T4) 7.7 Home Medications Medication Instructions Recorded NK [No Known Home Medication] 06/28/20 Current Medications Generic Name Dose Route Start Last Admin Trade Name Freq PRN Reason Stop Dose Admin Aspirin 81 mg 06/29/20 10:00 Asa - PO DAILY JOVANI Atorvastatin Calcium 40 mg 06/28/20 22:00 06/28/20 21:49 Lipitor - PO 40 mg HS JOVANI Administration Heparin Sodium (Porcine) 5,000 unit 06/29/20 14:00 Heparin - SQ TID JOVANI Sodium Chloride 1,000 mls @ 75 mls/hr 06/28/20 13:00 06/29/20 02:30 Normal Saline - IV 06/29/20 10:00 75 mls/hr ASDIR JOVANI Administration ASSESSMENT AND PLAN: 65 M ?h/o CAD chest pain HTN HLD Plan: Start high intensity statin, ASA, BB as tolerated Will need Echo to evaluate for WMA Cardiology evaluation for stress testing Cont. tele monitoring Send A1c/lipids/TSH DVT ppx: Heparin SC
[2020-06-29] MEDS ORDERED: REGADENOSON 0.4 MG/5 ML PRE-FILLED SYRINGE IVPUSH ONE ×2 (09:23→09:45)
[2020-06-29 09:53] VITALS: PULSE 58
[2020-06-29] MEDS ORDERED: ASPIRIN 81 MG CHEWABLE TABLETS PO SCH (10:00)
--- NOTE | 2020-06-29 10:44 | ECHO ---
Version: 1 Name: MARISABEL BANSAL Exam: Adult Echocardiogram Study Date: 06/29/2020, 8:04 AM Age: 65 Years MMode/2D Measurements & Calculations IVSd: 1.19 cm LVIDs: 2.7 cm LVIDd: 4.2 cm LVPWd: 1.19 cm LVOT diam: 2.02 cm Ao root diam: 3.2 cm LA dimension: 3.4 cm Doppler Measurements & Calculations MV E max mikel: 51.3 cm/sec Med E/e': 10.6 MV A max mikel: 80.9 cm/sec Med Peak E' Mikel: 4.8 cm/sec MV E/A: 0.63 Lat E/e': 5.4 Lat Peak E' Mikel: 9.5 cm/sec Ao max P.4 mmHg Ao V2 max: 145.2 cm/sec TR max mikel: 260.6 cm/sec TR max P.1 mmHg Left Ventricle The left ventricular size, thickness and function are normal. Ejection Fraction = 60-65%. The transm itral spectral Doppler flow pattern is suggestive of impaired LV relaxation. Right Ventricle The right ventricle is normal in size and function. Atria Normal left and right atrial size and function. The interatrial septum is intact with no evidence fo r an atrial septal defect. Mitral Valve The mitral valve is normal in structure and function. There is no mitral valve stenosis. There is tr gerard mitral regurgitation. Tricuspid Valve The tricuspid valve is normal in structure and function. There is mild tricuspid regurgitation. Righ t ventricular systolic pressure is normal. Aortic Valve The aortic valve is trileaflet. No hemodynamically significant valvular aortic stenosis. No aortic regurgitation is present. Pulmonic Valve The pulmonic valve is not well seen, but is grossly normal. There is no pulmonic valvular stenosis. Trace pulmonic valvular regurgitation. Great Vessels The aortic root is normal size. Mildly dilated ascending aorta. Pericardium/Pleura There is no pericardial effusion. Summary Statements The left ventricular size, thickness and function are normal Ejection Fraction = 60-65%. The transmitral spectral Doppler flow pattern is suggestive of impaired LV relaxation. The right ventricle is normal in size and function. There is trace mitral regurgitation. There is mild tricuspid regurgitation. Right ventricular systolic pressure is normal. Mildly dilated ascending aorta. There is no pericardial effusion. MD Cohn *Rocio 06/29/2020, 10:44 AM Ordering Physician: Lalit Hammond Referring Physician: LALIT HAMMOND Performed By: Mita Ibrahim
[2020-06-29] MEDS ORDERED: HEPARIN NA (PORCINE) 5,000 UNITS/ML 1ML VIAL SQ SCH (14:00)
--- NOTE | 2020-06-29 14:02 | PN ---
Teaching Attending Note Name of Resident: Von Dailey ATTENDING PHYSICIAN STATEMENT I saw and evaluated the patient. I reviewed the resident's note and discussed the case with the resident. I agree with the resident's findings and plan as documented. SUBJECTIVE: Patient has no further chest pain OBJECTIVE: Vital Signs Temperature 97.8 F 06/29/20 09:00 Pulse Rate 58 L 06/29/20 09:00 Respiratory Rate 20 06/29/20 09:53 Blood Pressure 122/81 06/29/20 09:00 O2 Sat by Pulse Oximetry (%) 99 06/29/20 09:53 PE: per resident's note CBCD WBC 6.3 K/mm3 (4.0-10.0) 06/29/20 05:35 RBC 4.86 M/mm3 (4.00-5.60) 06/29/20 05:35 Hgb 14.2 GM/dL (11.7-16.9) 06/29/20 05:35 Hct 41.2 % (35.4-49) 06/29/20 05:35 MCV 84.8 fl (80-96) 06/29/20 05:35 MCHC 34.4 g/dl (32.0-35.9) 06/29/20 05:35 RDW 13.5 % (11.9-15.9) 06/29/20 05:35 Plt Count 191 K/MM3 (134-434) 06/29/20 05:35 MPV 9.0 fl (7.5-11.1) 06/29/20 05:35 CMP Sodium 138 mmol/L (136-145) 06/29/20 05:35 Potassium 4.1 mmol/L (3.5-5.1) 06/29/20 05:35 Chloride 105 mmol/L (98-107) 06/29/20 05:35 Carbon Dioxide 29 mmol/L (21-32) 06/29/20 05:35 Anion Gap 5 MMOL/L (8-16) L 06/29/20 05:35 BUN 14.7 mg/dL (7-18) 06/29/20 05:35 Creatinine 1.0 mg/dL (0.55-1.3) 06/29/20 05:35 Random Glucose 89 mg/dL (74-106) 06/29/20 05:35 Calcium 8.7 mg/dL (8.5-10.1) 06/29/20 05:35 Total Bilirubin 0.7 mg/dL (0.2-1) 06/28/20 11:10 AST 23 U/L (15-37) 06/28/20 11:10 ALT 40 U/L (13-61) 06/28/20 11:10 Alkaline Phosphatase 59 U/L (45-117) 06/28/20 11:10 Total Protein 7.0 g/dl (6.4-8.2) 06/28/20 11:10 Albumin 3.4 g/dl (3.4-5.0) 06/28/20 11:10 CARDIAC ENZYMES Creatine Kinase 122 U/L (26-308) 06/28/20 19:51 Troponin I < 0.02 ng/ml (0.00-0.05) 06/28/20 19:51 Current Medications Generic Name Dose Route Start Last Admin Trade Name Freq PRN Reason Stop Dose Admin Aspirin 81 mg 06/29/20 10:00 06/29/20 11:49 Asa - PO 81 mg DAILY JOVANI Administration Atorvastatin Calcium 40 mg 06/28/20 22:00 06/28/20 21:49 Lipitor - PO 40 mg HS JOVANI Administration Heparin Sodium (Porcine) 5,000 unit 06/29/20 14:00 06/29/20 14:00 Heparin - SQ 5,000 unit TID JOVANI Administration Home Medications Medication Instructions Recorded Atorvastatin Ca [Lipitor] 20 mg PO HS #14 tablet 06/29/20 ECHO: mild tr, mild mr, EJF 60-65%, LV function NL Nuclear scan: no ischemia, no evidence of ischemic dilatation , no wall motion abnormality ASSESSMENT AND PLAN: This patient is a 65yom with PMhx of HLD (untreated currently), coronary cath 10 years ago in [place] (states vessels were clean), Fhx of :brother+mother with h/o CAD, who presents with nonradiating substernal chest pain x 1-2 weeks. Was admitted to r/o ACS #Atypical CP r/o ACS; with negative cardiac enzymes x 3. EKG nonspecific, echo and stress test nl , will; dc the patient home with f/u visit with dr Chan within a week #HLD: on lipitor ( new med) dc patient home
--- NOTE | 2020-06-29 14:03 | DS ---
Physical Exam: SUBJECTIVE: Patient seen and examined at bedside. c/o intermittent substernal chest pain that last for few seconds and resolves. No active chest pain, SOB, nausea, vomiting, LOC. OBJECTIVE: Vital Signs Period Temp Pulse Resp BP Sys/Bobby Pulse Ox Last 24 Hr 97.6 F-98 F 56-81 17-20 113-123/63-81 95-99 PHYSICAL EXAM GENERAL: The patient is awake, alert, and fully oriented, in no acute distress. HEAD: Normal with no signs of trauma. EYES: PERRL, extraocular movements intact, sclera anicteric, conjunctiva clear. ENT: Ears normal, nares patent, oropharynx clear without exudates, moist mucous membranes. NECK: Trachea midline, full range of motion, supple. LUNGS: Breath sounds equal, clear to auscultation bilaterally, no wheezes, no crackles, no accessory muscle use. HEART: Regular rate and rhythm, S1, S2 without murmur, rub or gallop. ABDOMEN: Soft, nontender, nondistended, normoactive bowel sounds, no guarding, no rebound, no hepatosplenomegaly, no masses. EXTREMITIES: 2+ pulses, warm, well-perfused, no edema. NEUROLOGICAL: Cranial nerves II through XII grossly intact. Normal speech, gait not observed. PSYCH: Normal mood, normal affect. SKIN: Warm, dry, normal turgor, no rashes or lesions noted. LABS Laboratory Results - last 24 hr 06/28/20 06/28/20 06/28/20 12:10 15:00 19:51 WBC RBC Hgb Hct MCV MCH MCHC RDW Plt Count MPV Sodium Potassium Chloride Carbon Dioxide Anion Gap BUN Creatinine Est GFR (CKD-EPI)AfAm Est GFR (CKD-EPI)NonAf Random Glucose Calcium Phosphorus Magnesium Creatine Kinase 122 Troponin I < 0.02 < 0.02 Triglycerides Cholesterol Total LDL Cholesterol HDL Cholesterol TSH Thyroxine (T4) COVID-19 ([facility]ASIM) Not detected 06/29/20 06/29/20 05:35 05:35 WBC 6.3 RBC 4.86 Hgb 14.2 Hct 41.2 MCV 84.8 MCH 29.2 MCHC 34.4 RDW 13.5 Plt Count 191 MPV 9.0 Sodium 138 Potassium 4.1 Chloride 105 Carbon Dioxide 29 Anion Gap 5 L BUN 14.7 Creatinine 1.0 Est GFR (CKD-EPI)AfAm 91.13 Est GFR (CKD-EPI)NonAf 78.63 Random Glucose 89 Calcium 8.7 Phosphorus 3.7 Magnesium 2.3 Creatine Kinase Troponin I Triglycerides 144 Cholesterol 203 H Total LDL Cholesterol 140 H HDL Cholesterol 45 TSH 1.59 Thyroxine (T4) 7.7 COVID-19 ([facility]ASIM) HOSPITAL COURSE: Date of Admission:06/28/20 65 Y M with a PMH of HLD (untreated), CAD s/p coronary cath (10 years ago in [place]) presented with substernal chest pain x 1-2 weeks, admitted for Atypical chest pain and ACS r/o. Trops negative x 3. Non exertional chest pain. EKG: abnormal, nonspecific, T wave inversions noted in V2, V3. No acute events on Telemetry monitoring. Cardiology, Dr. Chan was consulted. s/p echo and nuclear stress today. No ischemic ST/T changes with exercise stress. No ischemia, normal wall motion LVEF 69%. Lipid panel with elevated cholesterol and LDL, prescribed Lipitor 20mg HS for 14 days and advised to follow up with PCP out patient for repeat labs. Patient is medically stable for discharge and discharged him with the following instructions, prescriptions, and referrals. Date of Discharge: 06/29/20 Minutes to complete discharge: 36 Discharge Summary Problems reviewed: Yes Reason For Visit: T WAVE INVERSION ON ELECTROCARDIOGRAPHY CH PAIN Current Active Problems T wave inversion in EKG (Acute) Condition: Good - Instructions Diet, Activity, Other Instructions: YOUR VISIT You came to the hospital because you were experiencing chest pain. You were admitted to the hospital for care of these symptoms. Your heart was monitored on a heart monitor overnight. The heart monitor did not reveal any concerning abnormal findings. Cardiology was consulted and you had a stress test done to evaluate your hear. The stress test did not reveal any concerning findings. You are now stable and may return home. MEDICATIONS Please continue to take your home medications as prescribed. You have *NEW* medication. - Please take Lipitor 20mg daily at night, you have a prescription of two weeks, please visit your primary care provider for refills. please follow up with your liver function test. also lifestyle and diet modifications are needed. such as eat more vegetables, walking 20-30 minutes per day. ADDITIONAL CARE Please make an appointment to see your primary care provider at [facility] [address] within 1 week from today to discuss the hospital course and to repeat labs. Please make an appointment to see your Certified Emergency Vehicle Technician Dr. Chan in 1 week from today for further evaluation of your heart. Please call to make an appointmentoffice: [phone]. If you do not have a primary care doctor, follow up with [facility] clinic with dr Dailey on Thursday mornings. ADDITIONAL INFORMATION Please call 911 or come directly to the emergency department if you experience recurrence of the symptoms that brought you to the hospital, unusual headache, vision change, shortness of breath, chest pain, numbness, tingling, loss of alertness/awareness, loss of function, unusual bleeding or any alarming symptoms. Referrals: Marv Camp MD [Staff Physician] - 1 Week Lalit Chan MD [Staff Physician] - 1 Week (atypical chest pain, s/p stress test) Disposition: HOME - Home Medications Comprehensive Discharge Medication List: Ambulatory Orders Atorvastatin Ca [Lipitor] 20 mg PO HS #14 tablet 06/29/20 This patient is new to me today: No Emergency Visit: Yes ED Registration Date: 06/28/20 Care time: The patient presented to the Emergency Department on the above date and was hospitalized for further evaluation of their emergent condition. Critical Care patient: No - Discharge Referral Referred to [facility] No ATTENDING PHYSICIAN STATEMENT I saw and evaluated the patient. I reviewed the resident's note and discussed the case with the resident. I agree with the resident's findings and plan as documented. SUBJECTIVE: OBJECTIVE: ASSESSMENT AND PLAN:
[2020-06-29 14:11] VITALS: BP 123/85; TEMP 98
== END 2020-06-29 14:48 | disposition home or self-care (01) ==
LOC: JER 10:22 → INTOOBSV 12:44 → JERBED 12:44 → J4W 20:08
PROVIDERS: ATTEND Internal Medicine
PROC: 3E023GC Introduction of Other Therapeutic Substance into Muscle, Percutaneous Approach (ICD-10-PCS; principal; 2020-06-28)
PROC: 3E033GC Introduction of Other Therapeutic Substance into Peripheral Vein, Percutaneous Approach (ICD-10-PCS; 2020-06-28)
PROC: 3E0337Z Introduction of Electrolytic and Water Balance Substance into Peripheral Vein, Percutaneous Approach (ICD-10-PCS; 2020-06-28)
DX: R94.31 Abnormal electrocardiogram [ECG] [EKG] (principal); R07.9 Chest pain, unspecified; Z23 Encounter for immunization; E78.5 Hyperlipidemia, unspecified
CPT/HCPCS: 36415; 71045-TC-FY; 78452-TC; 80048; 80053; 80061; 82550; 83690; 83721; 83735; 84100; 84436; 84443; 84484; 85025; 85027; 85610; 93005; 93010; 93017; 93306-TC; 96361; 96372; 96374; 99285-25; A9502; C9803; G0378; J1644; J2785; U0003